=== PATIENT | female | born 1990 | race African-American/Black ===

== ENCOUNTER 2018-11-28 07:31 | Emergency (ER) | payer SELFPAY ==
[~2018-11-28] VITALS: Ht 170.2 cm; Wt 81.6 kg
[2018-11-28] MEDS ORDERED: AMOX500C PO (09:42)
[2018-11-28] MEDS ORDERED: TRAM50TA PO (09:42)
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
[2018-11-28 10:15] VITALS: BP 122/60
[2018-11-28] MEDS ORDERED: PENICILLIN G BENZATHINE LA 1,200,000 UNIT/2 ML DISP.SYRIN. IM ONE (10:30)
== END 2018-11-28 11:18 | disposition home or self-care (01) ==
LOC: ER 07:31
DX: K04.7 Periapical abscess without sinus (principal)
CPT/HCPCS: 96372; 99283; J0561